=== PATIENT | female | born 1980 | race Caucasian/White ===

== ENCOUNTER 2018-12-09 06:15 | Emergency (ER) | payer OTHER ==
[~2018-12-09] VITALS: Ht 175.3 cm; Wt 86.2 kg
[2018-12-09 06:26] VITALS: BP 157/83
--- NOTE | 2018-12-09 06:26 | NUR ---
Pt ambulated to bed 11 with vss. Unsteady gate noted.
[2018-12-09] MEDS ORDERED: KETOROLAC 30 MG/ML VIAL IVP ONE (06:30)
[2018-12-09] MEDS ORDERED: NACL 0.9% 1,000 ML IV ONE ×2 (06:30→06:44)
--- NOTE | 2018-12-09 06:30 | NUR ---
FIRST CONTACT WITH PATIENT. PATIENT PRESENTS WITH C/O HEADACHE 8/10, DIZZINESS, N/V WORSENING THIS MORNING ON DRIVE TO WORK. SKIN IS INTACT, PINK/WARM/DRY; AAOX4, PERRL, WITH EVEN AND STEADY GAIT, PT HAS SIGNS OF SHAKINESS; LUNGS CLEAR BL, BREATHING UNLABORED; HR EVEN AND REGULAR, BL PERIPHERAL PULSES PRESENT; BS ACTIVE X4, NO TENDERNESS TO PALPATION, NO HEPATOSPLENOMEGALLY PALPATED, RESONANT TO PERCUSSION; PT DENIES ANY FEVER, CP, SOB, OR COUGH AT THIS TIME; PT STATES 8/10 PAIN AT THIS TIME; VSS; PATIENT POSITIONED FOR COMFORT; PLACED ON FULL MONITOR, HOB ELEVATED; BEDRAILS UP X2; BED DOWN.
[2018-12-09] MEDS ORDERED: METOCLOPRAMIDE 10 MG/2 ML INJ VIAL IVP ONE (06:45)
[2018-12-09] MEDS ORDERED: MECLIZINE 25 MG TAB PO ONE (06:45)
[2018-12-09] MEDS ORDERED: diphenhydrAMINE 50 MG/ML VIAL IVP ONE (06:45)
[2018-12-09] MEDS ORDERED: cefTRIAXone 1,000 MG VIAL ONE (06:59)
[2018-12-09 07:00] LABS: BASOPHILS % (AUTO) 0.4 % (0.0-2.0); EOSINOPHILS # (AUTO) 0.1 K/uL (0-0.4); EOSINOPHILS % (AUTO) 2.5 % (0.0-4.0); HEMATOCRIT 39.6 % (36-48); HEMOGLOBIN 13.2 g/dL (12.0-16.0); LYMPHOCYTES # (AUTO) 1.1 K/uL (2.5-16.5); LYMPHOCYTES % (AUTO) 28.4 % (20.5-51.1); MEAN CORPUSCULAR HEMOGLOBIN 32 pg (27-31); MEAN CORPUSCULAR HGB CONC 33 g/dL (33-37); MEAN CORPUSCULAR VOLUME 96.5 fL (80-94); MONOCYTES # (AUTO) 0.5 K/uL (0.8-1.0); MONOCYTES % (AUTO) 14.2 % (1.7-9.3); NEUTROPHILS # (AUTO) 2.1 K/uL (1.8-7.7); NEUTROPHILS % (AUTO) 54.5 % (42.2-75.2); PLATELET COUNT (AUTO) 164 K/uL (140-450); RED BLOOD CELL COUNT(AUTO) 4.11 MIL/uL (4.20-5.40); RED CELL DISTRIBUTION WIDTH 13.1 % (11.6-13.7); WHITE BLOOD COUNT (AUTO) 3.8 K/uL (4.8-10.8)
--- NOTE | 2018-12-09 07:00 | NUR ---
PT TRANSPORTED TO CT WITH YOU[facility] MINISTER
[2018-12-09 07:04] LABS: BILIRUBIN,URINE NEGATIVE (NEGATIVE); BLOOD, URINE 3+ (NEGATIVE); COLOR,URINE YELLOW (YELLOW); LEUKOCYTE ESTERASE ,URINE NEGATIVE (NEGATIVE); PH,URINE 7.5 (5.0-9.0); UGLUCOSE NEGATIVE (NEGATIVE)
[2018-12-09 07:09] LABS: APPEARANCE,URINE SLIGHTLY HAZY (CLEAR)
[2018-12-09 07:10] LABS: NITRITE, URINE POSITIVE (NEGATIVE); RBC,URINE 3-10 (FEW) /HPF (0-5); WBC,URINE 0-5 (RARE) /HPF (0-5)
[2018-12-09 07:10] LABS: CARBON DIOXIDE 28.4 mmol/L (21-32); CREATININE 0.8 mg/dL (0.6-1.3); POTASSIUM 3.4 mmol/L (3.5-5.1)
--- NOTE | 2018-12-09 07:12 | NUR ---
PT RETURN FROM CT WITH TECH, PLACED BACK ON FULL MONITOR
--- NOTE | 2018-12-09 07:13 | NUR ---
Pt report given to CHARLY GUIDO. Transfer of care at this time.
--- NOTE | 2018-12-09 07:14 | NUR ---
ASSUMED CARE OF PT AT THIS TIME FROM MING GUIDO.
[2018-12-09 07:16] LABS: ALBUMIN 4.4 g/dL (3.4-5.0); TOTAL BILIRUBIN 1.5 mg/dL (0.0-1.0)
[2018-12-09] MEDS ORDERED: LORazepam 2 MG/ML VIAL IVP ONE (07:45)
[2018-12-09] MEDS ORDERED: HYDROmorphone PFS 2 MG/ML SYR IVP ONE (08:10)
[2018-12-09 08:41] VITALS: BP 149/85
--- NOTE | 2018-12-09 08:42 | NUR ---
Patient discharged with v/s stable. Written and verbal after care instructions given and explained. Patient alert, oriented and verbalized understanding of instructions. Ambulatory with steady gait. All questions addressed prior to discharge. ID band removed. Patient advised to follow up with PMD. Rx of IBUPROFEN,BACTRIM,ZOFRAN,PERCOCET, COLACE given. Patient educated on indication of medication including possible reaction and side effects. Opportunity to ask questions provided and answered.
== END 2018-12-09 08:42 | disposition home or self-care (01) ==
LOC: MED 06:15 → EEVIPCON 06:15 → MED 08:42
DX: R51 Headache (principal); R42 Dizziness and giddiness; R11.2 Nausea with vomiting, unspecified; J45.909 Unspecified asthma, uncomplicated; Z88.8 Allergy status to other drugs, medicaments and biological substances
CPT/HCPCS: 36415; 70450; 80053; 81001; 81025; 83690; 85025; 96365; 96375; 99284; J0696; J1170; J1200; J1885; J2060; J7030; J7060; J8597; 96361; 96376